=== PATIENT | male | born 1975 | race Hispanic/Latino ===

== ENCOUNTER 2020-04-12 11:09 | Emergency (ER) | payer BC ==
[2020-04-12] MEDS ORDERED: Iopamidol 370 76% 100 ML VIAL ONE (11:18)
[2020-04-12 11:51] LABS: #Eosinphils 0.2 thou/uL (0.0-0.7); #Lymphocytes 0.9 thou/uL (1.20-3.40); #Monocytes 0.5 thou/uL (0.11-0.59); #Neutrophils 7.1 thou/uL (1.40-6.50); %Basophils 0.2 % (0.0-1.0); %Eosinophils 1.8 % (0.0-10.0); %Monocytes 5.6 % (0.0-10.0); %Neutrophils 82.3 % (42.0-75.0); Mean Corpuscular HGB CONC 34.6 g/dL (32.0-36.0); Mean Corpuscular Hemoglobin 29.2 pg (27.0-31.0); Mean Corpuscular Volume 84.4 fL (78.0-98.0); Mean Platelet Volume 8.7 fL (7.4-10.4); Platelet Count 249 thou/uL (130-400); RBC Distribution Width 12.5 % (11.5-14.5); Red Blood Cell (RBC) Count 4.81 mill/uL (4.70-6.10); White Blood Cell (WBC) Count 8.7 thou/uL (4.8-10.8)
[2020-04-12] MEDS ORDERED: Ondansetron PF 4 MG/2 ML Vial ONE (11:52)
[2020-04-12] MEDS ORDERED: Ketorolac Tromethamine 30 MG/ML VIAL ONE (11:52)
[2020-04-12 12:08] LABS: Albumin 3.6 g/dL (3.5-5.0)
[2020-04-12 12:09] LABS: Chloride 90 mmol/L (98-107); Potassium 3.1 mmol/L (3.5-5.1); Sodium 129 mmol/L (136-145)
[2020-04-12 12:10] LABS: Calcium 8.6 mg/dL (7.8-10.44); Glucose 117 mg/dL (70-105)
[2020-04-12 12:12] LABS: Anion Gap 17 mmol/L (10-20); Bilirubin, Total 1.4 mg/dL (0.2-1.2); Carbon Dioxide 25 mmol/L (22-29)
[2020-04-12 12:13] LABS: Alkaline Phosphatase 38 U/L (40-110)
[2020-04-12 12:14] LABS: Calc. Creatinine Clearance 0 mL/min (70-130)
[2020-04-12 12:15] LABS: BUN (Urea Nitrogen) 17 mg/dL (8.9-20.6)
[2020-04-12 12:16] LABS: ALT (SGPT) 68 U/L (8-55); AST (SGOT) 119 U/L (5-34); CK (CPK) 1991 U/L (30-200)
[2020-04-12 12:34] LABS: Globulin 4.2 g/dL (2.4-3.5); Protein, Total 7.8 g/dL (6.0-8.3)
--- NOTE | 2020-04-12 12:36 | RAD ---
Exam: Chest one view HISTORY:COVID patient Comparison: 12/14/2008 FINDINGS: Cardiac silhouette: Normal Aorta: Unremarkable Pulmonary vessels: Normal Costophrenic angles: Clear LUNGS: Multifocal interstitial and alveolar opacities Pneumothorax: None Osseous abnormalities: None IMPRESSION: Multi lobar COVID pneumonia
--- NOTE | 2020-04-12 13:35 | CT ---
CT Brain WO Con History: Nausea and vomiting Comparison: None. Findings: No acute hemorrhage or infarct. No midline shift or mass effect. Ventricular size and extra -axial CSF spaces are normal. The calvarium is intact. Mucosal thickening and fluid within the left sphenoid sinus. Impression: No acute intracranial abnormality.
[2020-04-12 13:47] LABS: Actual Bicarbonate (HCO3a) 22.7 mEq/L (22-28); Analyzer IN Cardio ER; Base Excess (BEa) 0.1 mEq/L (-2.0 to +3.0); CO2 Tension 30.7 mmHg (35.0-45.0); Calcium, Ionized (arterial) 1.03 mmol/L (1.12-1.30); Carboxyhemoglobin (COHb) 0.2 gm% (0.0-3.0); Hemoglobin (Hb) 12.8 g/dL (14.0-18.0); O2 Tension (PaO2), arterial 67.6 mmHg (80.0-100.0); Potassium - ABG Lab 2.84 mmol/L (3.70-5.30); pH, Arterial 7.49 (7.35-7.45)
[2020-04-12 13:48] LABS: ALV-art Gradient 43.755 mmHg (0-20); Puncture Site RRA
--- NOTE | 2020-04-12 14:01 | CT ---
CT PULMONARY ANGIOGRAM WITH IV CONTRAST AND 3D POSTPROCESSING. HISTORY: Covid-19 diagnosed on 04/01/2020. Shortness of breath. Chest weakness. COMPARISON: None. FINDINGS: The pulmonary arterial vasculature is inadequately opacified for satisfactory evaluation to exclude p ulmonary embolism. The thoracic aorta is opacified without aneurysm or dissection. No pleural or pe ricardial effusions are seen. There are multifocal patchy areas of ground-glass consolidation in the lung ochoa bilaterally. Upper abdominal tomograms demonstrate changes of fatty infiltration of the liver. There are degenerative changes in the spine. IMPRESSION: 1. Nondiagnostic exam for pulmonary embolism. 2. COVID-19 pneumonia. 3. Fatty liver. POS: OFF
== END 2020-04-12 14:49 | disposition home or self-care (01) ==
LOC: ERS 11:09
DX: U07.1 COVID-19 (principal); J12.82 Pneumonia due to coronavirus disease 2019; E86.0 Dehydration; R11.0 Nausea; I10 Essential (primary) hypertension; E11.9 Type 2 diabetes mellitus without complications; Z79.84 Long term (current) use of oral hypoglycemic drugs; Z79.899 Other long term (current) drug therapy
CPT/HCPCS: 36600; 70450; 71045; 71275; 80053; 82550; 82805; 83605; 85025; 93005; 96374; 96375; J1885; J2405; Q9967

== ENCOUNTER 2020-07-12 10:03 | Outpatient (CLI) | payer BC | END 2020-07-12 10:04 | disposition home or self-care (01) | LOC: BICRAD 10:03 | PROVIDERS: ATTEND Internal Medicine Pulmonary Disease | DX: R06.00 Dyspnea, unspecified (principal) | CPT/HCPCS: 71046 ==